=== PATIENT | female | born 1985 | race Caucasian/White ===

== ENCOUNTER → 2016-05-01 | Outpatient (CLI) | payer BC ==
[~2016-05-01] MED LIST: DOCO100C PO; PREN-39 PO
[2016-05-01 12:57] LABS: BASOPHILS % 0.3 % (0.0-2.0); EOSINOPHILS # 0.1 10^3/ul (0.0-0.5); EOSINOPHILS % 1.3 % (0.0-7.0); HEMATOCRIT 36.3 % (37.0-47.0); HEMOGLOBIN 12.3 g/dl (12.0-16.0); LYMPHOCYTES # 1.4 10^3/ul (0.8-2.9); LYMPHOCYTES % 18.7 % (15.0-51.0); MEAN CORPUSCULAR HEMOGLOBIN 30.8 pg (29.0-33.0); MEAN CORPUSCULAR HGB CONC 33.8 g/dl (32.0-37.0); MEAN CORPUSCULAR VOLUME 91.1 fl (82.0-101.0); MEAN PLATELET VOLUME 7.7 fl (7.4-10.4); MONOCYTE # 0.4 10^3/ul (0.3-0.9); MONOCYTES % 5.3 % (0.0-11.0); NEUTROPHIL # 5.5 10^3/ul (1.6-7.5); NEUTROPHILS % 74.4 % (39.0-77.0); PLATELET COUNT 254 10^3/UL (140-440); RED BLOOD COUNT 3.98 10^6/ul (4.20-5.40); RED CELL DISTRIBUTION WIDTH 13.4 % (11.5-14.5); UNCORRECTED WBC 7.4 10^3/ul (4.8-10.8); WHITE BLOOD COUNT 7.4 10^3/ul (4.8-10.8)
[2016-05-01 12:58] LABS: CONDITION 1
== END | disposition home or self-care (01) ==
LOC: LAB 11:16
PROVIDERS: ATTEND Obstetrics & Gynecology
DX: O24.410 Gestational diabetes mellitus in pregnancy, diet controlled (principal); Z3A.00 Weeks of gestation of pregnancy not specified
CPT/HCPCS: 82950; 85025; 86885; 86900; 86901

== ENCOUNTER 2016-07-13 05:15 | Inpatient (IN) | payer BC ==
[~2016-07-13] VITALS: Ht 170.2 cm; Wt 76.2 kg
[2016-07-13 05:19] VITALS: Ht 170.2 cm; Wt 76.2 kg
[2016-07-13 05:27] VITALS: BP 124/73; PULSE 95; RESP 18
[2016-07-13] MEDS: LACTATED RINGER'S 1,000 ML IV SCH ×5 (06:27→10:34)
[2016-07-13] MEDS ORDERED: OXYTOCIN 30 UNITS/LR 500 ML IV SCH ×3 (06:30)
[2016-07-13] MEDS ORDERED: METHYLERGONOVINE 0.2 MG INJ IM PRN ×2 (06:30→18:00)
[2016-07-13] MEDS ORDERED: MISOPROSTOL 200 MCG TAB PR PRN ×2 (06:30→18:00)
[2016-07-13] MEDS ORDERED: IBUPROFEN 600 MG TAB PO PRN (06:30)
[2016-07-13] MEDS ORDERED: LIDOCAINE 1% (MPF) 30 ML INJ INJ PRN (06:30)
[2016-07-13] MEDS ORDERED: CARBOPROST 250 MCG INJ IM PRN ×2 (06:30→18:00)
[2016-07-13] MEDS ORDERED: OXYTOCIN 30 UNITS/LR 500 ML IV PRN ×2 (06:30→18:00)
[2016-07-13] MEDS ORDERED: BUTORPHANOL 2 MG INJ IV PRN (06:30)
[2016-07-13 06:55] LABS: ADD SCAN DIFF NO
[2016-07-13 07:15] LABS: BASOPHILS % 0.3 % (0.0-2.0); EOSINOPHILS # 0.1 10^3/ul (0.0-0.5); EOSINOPHILS % 1.5 % (0.0-7.0); HEMATOCRIT 35.4 % (37.0-47.0); HEMOGLOBIN 11.7 g/dl (12.0-16.0); LYMPHOCYTES # 1.7 10^3/ul (0.8-2.9); MEAN CORPUSCULAR HGB CONC 33.1 g/dl (32.0-37.0); MEAN CORPUSCULAR VOLUME 87.6 fl (82.0-101.0); MEAN PLATELET VOLUME 10.4 fl (7.4-10.4); MONOCYTE # 0.6 10^3/ul (0.3-0.9); MONOCYTES % 8.3 % (0.0-11.0); NEUTROPHIL # 4.7 10^3/ul (1.6-7.5); NEUTROPHILS % 65.3 % (39.0-77.0); PLATELET COUNT 211 10^3/UL (140-415); RED BLOOD COUNT 4.04 10^6/ul (4.20-5.40); RED CELL DISTRIBUTION WIDTH 13.4 % (11.5-14.5); WHITE BLOOD COUNT 7.1 10^3/ul (4.8-10.8)
--- NOTE | 2016-07-13 07:23 | TRIAGE ---
OB Triage Datetime Report Generated by CPN: 07/13/2016 07:22 Datetime: 07/13/2016 07:00 Stage of : Labor Labor Evaluation Frequency: 2-7 Monitor Mode: External Duration (sec)2399: 60-160 Quality: Moderate Pattern: Normal: <= 5 Contractions in 10 Minutes Resting Tone [place]: Relaxed Heart Rate FHR Baseline Rate: 130 Monitor Mode: External US Variability: Moderate 6-25 bpm Accelerations: 15X15 Decelerations: None Category: Category I Pain Assessment Pain Scale: 7 Pain Presence: Intermittent Pain Type: Cramping; Pressure Pain Location: Abdomen; Back Pain Goal: 5 Pain Relief Measures: Comfort Measures Pain Assessment Comments: WAITING FOR EPIDURAL Datetime: 07/13/2016 06:17 Assessment Type: Admission Assessment Vaginal Bleeding: None Maternal Assessment Level of Consciousness: Fully Conscious DTR's/Clonus: DTRs 2+; No Clonus Headache: Denies Blurred Vision: No Respiratory Effort: Unlabored; Regular Rhythm; Equal Expansion Breath Sounds, Left: Clear and Equal Breath Sounds, Right: Clear and Equal Nausea/Vomiting: Denies RUQ Epigastric Pain: Denies Lower Extremities Edema: None Upper Extremities Edema: None Facial Edema: None Fall Risk Assessment History of Falling: (0) No Secondary Diagnosis: (0) No Ambulatory Aid: (0) Bedrest/Nurse Assist IV Therapy: (0) No Gait: (0) Normal/Bedrest/Immobile Mental Status: (0) Oriented to Own Ability Fall Score: 0 Fall Risk Score Definition: No Risk: No action required Pain Assessment Pain Scale: 7 Pain Presence: Intermittent Pain Type: Cramping; Pressure Pain Location: Abdomen; Back Pain Goal: 5 Membrane Status: Intact Datetime: 07/13/2016 06:00 Stage of : OB Triage Labor Evaluation Frequency: 3-6 Monitor Mode: External Duration (sec)2399: 60-160 Quality: Moderate Pattern: Normal: <= 5 Contractions in 10 Minutes Resting Tone [place]: Relaxed Heart Rate FHR Baseline Rate: 130 Monitor Mode: External US Variability: Moderate 6-25 bpm Accelerations: 10X10 Decelerations: None Category: Category I Datetime: 07/13/2016 05:38 Vaginal Exam Dilatation (cms): 2.0 Effacement (%): 80 Station: -2 Exam By: TUCKER Vaginal Bleeding: None Cervix, Consistency: Soft Cervix, Position: Posterior Presentation 'A': Cephalic Datetime: 07/13/2016 05:27 Assessment Type: Triage Maternal Assessment Level of Consciousness: Fully Conscious DTR's/Clonus: DTRs 2+; No Clonus Headache: Denies Blurred Vision: No Respiratory Effort: Unlabored; Regular Rhythm; Equal Expansion Breath Sounds, Left: Clear and Equal Breath Sounds, Right: Clear and Equal Nausea/Vomiting: Denies RUQ Epigastric Pain: Denies Lower Extremities Edema: None Upper Extremities Edema: None Facial Edema: None Fall Risk Assessment History of Falling: (0) No Secondary Diagnosis: (0) No Ambulatory Aid: (0) Bedrest/Nurse Assist IV Therapy: (0) No Gait: (0) Normal/Bedrest/Immobile Mental Status: (0) Oriented to Own Ability Fall Score: 0 Fall Risk Score Definition: No Risk: No action required Datetime: 07/13/2016 05:21 Time of Arrival: 07/13/2016 05:12 EGA: 39.3 Arrived By: Wheelchair Arrived From: Home Chief Complaint: CONTRACTIONS SINCE 29 Movement: Present Contractions: Regular Time Contractions Began: 07/13/2016 00:30 Contractions: Q 7 MIN Rupture of Membranes: Denies Vaginal Bleeding: None Vaginal Discharge: Denies Patient Complaints: Contractions Time Provider Notified: 07/13/2016 06:03 Provider Notified: LEE Initial Plan: EFM, ASSESSMENT, CALL MD FOR ORDERS
[2016-07-13 07:24] LABS: INR 0.94; PARTIAL THROMBOPLASTIN TIME 27.2 Sec (25.0-35.0); PROTIME 12.6 Sec (12.2-14.2)
[2016-07-13] MEDS ORDERED: FENTAnyl 2MCG/ML-ROPIV 0.2% 100 ML ONE (07:43)
[2016-07-13] MEDS ORDERED: NALOXONE (0.4 MG/ML) INJ IV PRN (08:30)
[2016-07-13] MEDS ORDERED: FENTAnyl 2MCG/ML-ROPIV 0.2% 100 ML BAG EPI SCH (08:30)
[2016-07-13] MEDS ORDERED: LACTATED RINGER'S 1,000 ML IV PRN (09:00)
[2016-07-13 17:20] VITALS: BP 116/62; PULSE 62; RESP 18
[2016-07-13] MEDS: OXYTOCIN 30 UNITS/LR 500 ML IV SCH ×2 (17:37→20:11)
--- NOTE | 2016-07-13 17:43 | LDN ---
Date/Time of Note Date/Time of Note DATE: 07/13/16 TIME: 17:40 Delivery Summary of a viable baby boy weighing 3875 grams, or 8# 9oz, 21" long, and with Apgars of 9/9. Weeks of Gestation 39w 3d Placenta Delivered: Spontaneously Meconium: none Episiotomy: No Perineal laceration: 2 Laceration repair: Second degree perineal laceration repaired with 2-0 chromic. Anesthesia type: Epidural Estimated blood loss: 350 Sponge & Needle done & correct: Yes All needle counts correct: Yes Any foreign bodies felt in the: No (vagina) Problems: Infant Delivery Information Sex Infant Sex: male Apgars 1 Minute: 9 5 Minute: 9 Suctioning Nose & mouth suctioned at bogdan: No Delee suction performed: No Umbilical Cord Umbilical cord with: 3 Vessels Cord presentations: no nuchal cord Cord Blood was obtained: Yes Mother & Baby Disposition Disposition Mom & Baby to Maternity; Good: Yes Baby to NICU: No GAUTAM HOWARD MD Jul 13, 2016 17:43
--- NOTE | 2016-07-13 17:46 | HP ---
Date/Time of Note Date/Time of Note DATE: 07/13/16 TIME: 17:43 OB - History Hx of Present Free Text/Dictation 31 y.o. with an IUP at 39w 3d came in this morning in labor, membranes were intact, and has had that labor augmented. Estimated Due Date: July 17, 2016 : 2 Para: 1 Care: Good Care Ultrasounds: Normal mid trimester US Obstetrical Complications: None Medical Complications: None Past Family/Social History * Past Medical, Surgical, Family and Obstetric Histories reviewed from chart. Blood Type: A- Rubella: immune RPR/VDRL: Negative GBS Status: Negative HBsAG: Negative OB Admission Exam Vital Signs Vital Signs Vital Signs Date Time Temp Pulse Resp B/P Pulse Ox O2 Delivery O2 Flow Rate FiO2 07/13/16 05:27 97.9 95 18 124/73 Room Air Physical Exam Heart: Rhythm Normal Lungs: Clear Extremities: Normal Reflexes: Normal Cervical Dilatation: 2cm Effacement: Other (80%) Station: -2 Membranes: Intact Amniotic Fluid: Clear Heart Rate: 140's Accelerations: Accelerations Present Decelerations: No Decelerations Varibility: Moderate Contractions on Admission: < 5 Minutes Apart Last 72 hours Lab Results CBC & BMP 07/13/16 06:27 OB Assessment/Plan Reason for admission: active labor Plan: Expectant Management GAUTAM HOWARD MD Jul 13, 2016 17:46
[2016-07-13 18:00] VITALS: BP 111/64; PULSE 64; RESP 19
[2016-07-13] MEDS ORDERED: LANOLIN 7 GM TUBE TOP PRN (18:00)
[2016-07-13] MEDS: BENZOCAINE 20% 56 ML SPRAY TOP PRN (18:19)
[2016-07-13] MEDS: IBUPROFEN 600 MG TAB PO SCH ×2 (18:19→23:49)
[2016-07-13 20:00] VITALS: BP 119/59; PULSE 68; RESP 18
[2016-07-13] MEDS: OXYCODONE/ASPIRIN (4.88/325) TAB PO PRN (20:20)
[2016-07-14] VITALS: BP 98/54; PULSE 72; RESP 18
[2016-07-14] MEDS: OXYCODONE/ASPIRIN (4.88/325) TAB PO PRN ×2 (01:30→10:04)
[2016-07-14 04:00] VITALS: BP 111/66; PULSE 80; RESP 18
[2016-07-14] MEDS: IBUPROFEN 600 MG TAB PO SCH ×3 (05:07→17:48)
[2016-07-14 07:21] LABS: ADD SCAN DIFF NO
[2016-07-14 07:27] LABS: BASOPHILS % 0.5 % (0.0-2.0); EOSINOPHILS # 0.1 10^3/ul (0.0-0.5); EOSINOPHILS % 1.2 % (0.0-7.0); HEMATOCRIT 32.1 % (37.0-47.0); HEMOGLOBIN 10.4 g/dl (12.0-16.0); LYMPHOCYTES # 1.7 10^3/ul (0.8-2.9); LYMPHOCYTES % 18.7 % (15.0-51.0); MEAN CORPUSCULAR HEMOGLOBIN 28.8 pg (29.0-33.0); MEAN CORPUSCULAR HGB CONC 32.4 g/dl (32.0-37.0); MEAN CORPUSCULAR VOLUME 88.9 fl (82.0-101.0); MEAN PLATELET VOLUME 10.2 fl (7.4-10.4); MONOCYTE # 0.6 10^3/ul (0.3-0.9); MONOCYTES % 6.9 % (0.0-11.0); NEUTROPHIL # 6.4 10^3/ul (1.6-7.5); NEUTROPHILS % 72.2 % (39.0-77.0); PLATELET COUNT 184 10^3/UL (140-415); RED BLOOD COUNT 3.61 10^6/ul (4.20-5.40); RED CELL DISTRIBUTION WIDTH 13.8 % (11.5-14.5); WHITE BLOOD COUNT 8.8 10^3/ul (4.8-10.8)
[2016-07-14 08:00] VITALS: BP 96/66; PULSE 80; RESP 16; RESP 20
[2016-07-14 16:41] VITALS: BP 108/86; PULSE 74; RESP 18
--- NOTE | 2016-07-14 17:49 | PD.PPDC ---
SILK HANGER Discharge Instruction Condition Patient Condition: Good Diet Diet: Resume Regular Diet Activity/Restrictions Activity: Normal Activity May Shower Restrictions: No Sexual Activity Nothing in the Vagina No [place] No Tampons, douche Follow-up Follow-up with Physician: 6, Week/Weeks Return to clinic for [facility] MANAGER Instructions: Fever greater than 101 Chills Worsening abdominal pain Excessive Vaginal Bleeding OB Instructions: Breast Tenderness Depression GAUTAM HOWARD MD Jul 14, 2016 17:49
--- NOTE | 2016-07-14 17:51 | DS ---
Date/Time of Note Date/Time of Note DATE: 07/14/16 TIME: 17:50 Obstetrical Discharge Record Final Diagnosis Final Diagnosis: Term delivered Vaginal Delivery Obstetrical Delivery: Spontaneous, Laceration, Repaired Complications Augmentation: Yes Induction: No Condition on Discharge Physical Assessment Last Vitals: T=99.3. BP 108/86. Voiding: Yes Bowel Movement: Yes Breast: Soft, non-tender Fundus: Firm Episiotomy: Laceration intact. Calf Tenderness: No Patient Condition: Good GAUTAM HOWARD MD Jul 14, 2016 17:51
[2016-07-14 19:45] VITALS: BP 89/53; PULSE 66; RESP 17
[2016-07-14] MEDS: BENZOCAINE 20% 56 ML SPRAY TOP PRN (20:16)
[2016-07-14] MEDS: DOCUSATE SODIUM 100 MG CAP PO SCH (21:46)
[2016-07-14] MEDS: LACTATED RINGER'S 1,000 ML IV* SCH ×3 (21:51→21:53)
[2016-07-15 04:24] VITALS: BP 109/60; PULSE 80; RESP 18
[2016-07-15] MEDS: OXYCODONE/ASPIRIN (4.88/325) TAB PO PRN (04:24)
[2016-07-15] MEDS: IBUPROFEN 600 MG TAB PO SCH ×4 (05:54→12:00)
[2016-07-15 07:45] VITALS: BP 98/57; PULSE 65; RESP 17
[2016-07-15] MEDS ORDERED: DIPHTH/TET/ACEL PERTUSS (ADULT) 0.5 ML VIAL IM* ONE (09:00)
[2016-07-15] MEDS: DOCUSATE SODIUM 100 MG CAP PO SCH (09:31)
== END 2016-07-15 16:28 | disposition home or self-care (01) | DRG 775 ==
LOC: OBT 05:15 → L-D 05:15 → OBT 06:05 → L-D 07:14 → PP1 17:20
PROVIDERS: ADMIT Obstetrics & Gynecology; ATTEND Obstetrics & Gynecology
PROC: 10E0XZZ Delivery of Products of Conception, External Approach (ICD-10-PCS; principal; 2016-07-13)
PROC: 0KQM0ZZ Repair Perineum Muscle, Open Approach (ICD-10-PCS; 2016-07-13)
DX: O70.1 Second degree perineal laceration during delivery (principal); Z37.0 Single live birth; Z3A.39 39 weeks gestation of pregnancy
CPT/HCPCS: 62319; 85025; 85610; 85730; 86592; 86850; 86870; 86885; 86900; 86901; 90715; G0463; J2590; J2790; J3010; J7120